=== PATIENT | female | born 1970 | race Caucasian/White ===

== ENCOUNTER 2022-03-10 16:45 | Emergency (ER) | payer OTHER, SELFPAY ==
--- NOTE | ~2022-03-10 | XR_ITS ---
EXAM: XR lumbar spine 2-3V DATE: 03/10/2022 18:12 HISTORY: low back pain X 3 DAYS, RADIATES DOWN BOTH LEGS, NO INJURY . COMPARISON: None available. FINDINGS: Cholecystectomy clips. 5 nonrib-bearing lumbar-type vertebral bodies. Pedicles intact. Norm al vertebral body alignment. Vertebral body heights preserved. Multilevel disc space narrowing and ma rginal osteophytosis. Lower lumbar facet hypertrophy and sclerosis. No fracture or dislocation. IMPRESSION: Multilevel mild lumbar degenerative disc disease and facet arthropathy. Reviewed, dictated and finalized at location K[facility] [employer] IMPRESSION: Multilevel mild lumbar degenerative disc disease and facet arthropa thy.
[2022-03-10 17:18] VITALS: PULSE 98; RESP 16; TEMP 36.4; O2SAT 100
--- NOTE | 2022-03-10 18:01 | ED.BACK ---
HPI - Back Pain/Injury General Chief Complaint: Back Pain/Injury Stated Complaint: severe back pain Time Seen by Provider: 03/10/22 17:31 Source: patient Mode of arrival: ambulatory Limitations: no limitations History of Present Illness HPI Narrative: This is a 51-year-old female that presents to the emergency department for low back pain ongoing over the last 2 days. No recent injury or trauma. The pain is worse with movement and relieved with rest. It radiates into her hips and legs. She has been taking Tylenol and ibuprofen for pain with some improvement. Denies abdominal pain, vomiting, dysuria, hematuria, numbness, or weakness. Related Data Allergies Allergy/AdvReac Type Severity Reaction Status Date / Time metoclopramide Allergy Mild Nervousness Verified 03/10/22 18:05 iodine Allergy Unknown Unknown Verified 03/10/22 18:05 Sulfa (Sulfonamide Allergy Unknown Unknown Verified 03/10/22 18:05 Antibiotics) Review of Systems Review of Systems: CONSTITUTIONAL: Denies fever GASTROINTESTINAL: Denies abdominal pain, nausea, vomiting GENITOURINARY: Denies dysuria or hematuria. SKIN: Denies rash MUSCULOSKELETAL: Reports back pain, joint pain, and myalgia. NEUROLOGIC: Denies numbness, or weakness. All systems reviewed & are unremarkable except as noted in HPI and below PMFSH Past Medical History Medical History (Updated 03/10/22 @ 19:19 by Marisol Jacobsen PA-C) History of depression Social History Social History (Updated 03/10/22 @ 18:04 by Marisol Jacobsen PA-C) Substance use: never Exam Narrative: GENERAL: Well-appearing, well-nourished, and in no acute distress. HEAD: Normocephalic, atraumatic. EYES: EOMI. CHEST: Clear to auscultation. No respiratory distress. No wheezes rales or rhonchi HEART: Regular rate and rhythm. No murmur heard. Normal peripheral pulses. ABDOMEN: Soft, nontender, nondistended, normal active bowel sounds. BACK: No midline spinal tenderness EXTREMITIES: Normal range of motion. No edema. Normal DP pulses. Strength equal in bilateral lower extremities (5/5) SKIN: Warm, dry, no rash. NEURO: No focal deficits. Alert and oriented x3. Normal gait PSYCH: Normal mood and affect Course Course Emergency Course: Patient updated on workup and agrees with plan of care. Resting comfortably Vital Signs Vital signs: Vital Signs Temperature 97.5 F L 03/10/22 17:18 Pulse Rate 98 03/10/22 17:18 Respiratory Rate 16 03/10/22 17:18 Pulse Oximetry 100 03/10/22 17:18 Oxygen Delivery Room Air 03/10/22 17:18 Temperature 97.5 F L 03/10/22 17:18 Pulse Rate 98 03/10/22 17:18 Respiratory Rate 16 03/10/22 17:18 Blood Pressure 132/92 H 03/10/22 18:05 Pulse Oximetry 100 03/10/22 17:18 Oxygen Delivery Room Air 03/10/22 17:18 MDM - Back Pain/Injury MDM Narrative Medical decision making narrative: Patient presents to the ER for low back pain ongoing over the last 2 days. No recent injury or trauma. Patient is neurovascularly intact. Denies any abdominal or urinary symptoms. Lumbar spine x-ray shows degenerative disc disease and facet arthropathy. She was updated on work-up. Agrees with plan of care. She is to follow-up with her primary care provider. Will be given follow up with neurosurgery as well. She was given warnings to return to the ER Differential Diagnosis Differential diagnosis: Likely lumbar radiculopathy, sciatica and strain of lumbar region Imaging Data My impression: No acute osseous abnormalities Radiologist's impression: ITS Impressions Lumbar Spine X-Ray 03/10/22 18:53 IMPRESSION: Multilevel mild lumbar degenerative disc disease and facet arthropathy. Critical Care Time Critical Care Time Critical Care Time: No Discharge Plan Discharge Clinical Impression: Low back pain Qualifiers: Chronicity: acute Back pain laterality: bilateral Sciatica presence: with sciatica Sciatica laterality: bilateral sciatica Qu
[2022-03-10 18:05] VITALS: BP 132/92
[2022-03-10] MEDS: diazePAM INJ (*CRX) 10 MG/2 ML SYRINGE 5 MG IM (18:26)
[2022-03-10] MEDS: ACETAMINOPHEN 500 MG TABLET 1000 MG PO (18:26)
--- NOTE | 2022-03-10 18:48 | PC.NURSE ---
Patient taken to X-ray prior to bedside , patient reports she is post menopausal.
[2022-03-10] MEDS: traMADol HCL (*CRX) 50 MG TABLET PO (19:52)
== END 2022-03-10 19:56 | disposition home or self-care (01) ==
PROVIDERS: Emergency Provider Physician Assistant; PCP Family Medicine
DX: M54.50 Low back pain, unspecified (principal); M51.36 Other intervertebral disc degeneration, lumbar region
CPT/HCPCS: 72100; 96372; 99283; A9270; J3360